=== PATIENT | male | born 1990 | race African-American/Black ===

== ENCOUNTER 2017-11-14 22:00 | Emergency (ER) | payer OTHER ==
[~2017-11-14] VITALS: Ht 167.6 cm; Wt 60.0 kg
[2017-11-14 22:02] VITALS: BP 133/78; PULSE 86; RESP 16; TEMP 98.7; O2SAT 98
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
[2017-11-14] MEDS ORDERED: DICL75TA PO (23:58)
[2017-11-14] MEDS ORDERED: CYCL10TA PO (23:58)
[2017-11-14] MEDS ORDERED: ALLTAB PO (23:58)
[2017-11-15] MEDS ORDERED: NAPROXEN 500 MG TAB PO ONE (00:15)
[2017-11-15] MEDS ORDERED: CYCLOBENZAPRINE HCL 10 MG TAB PO ONE (00:15)
== END 2017-11-15 01:04 | disposition home or self-care (01) ==
LOC: NEPK 22:00
DX: M54.9 Dorsalgia, unspecified (principal); M54.2 Cervicalgia; H92.02 Otalgia, left ear; V49.49XA Driver injured in collision with other motor vehicles in traffic accident, initial encounter
CPT/HCPCS: 99283